=== PATIENT | female | born 1990 | race Caucasian/White ===

== ENCOUNTER 2019-01-30 17:40 | Emergency (ER) | payer OTHER ==
[~2019-01-30] VITALS: Ht 170.2 cm; Wt 75.7 kg
[~2019-01-30 17:40] MED LIST: ATARAX25 MG PO; CIMETIDINE400 MG PO; LOTRISONE CREAM45 GM TP; METOZOLV ODT10 MG PO
[2019-01-30] MEDS ORDERED: GILTUSS TR TAB1 EACH PO (17:46)
[2019-01-30] MEDS ORDERED: ZITHROMAX200 MG PO (17:46)
[2019-01-30] MEDS ORDERED: AMOX1TAB5 PO (19:00)
[2019-01-30] MEDS ORDERED: MEDROLPACK PO (19:00)
[2019-01-30] MEDS ORDERED: CLARITIN10 MG PO (19:00)
[2019-01-30] MEDS ORDERED: TUSNEL LIQUID178 ML PO (19:00)
== END 2019-01-30 19:10 | disposition home or self-care (01) ==
LOC: ER 17:40
DX: J40 Bronchitis, not specified as acute or chronic (principal)

== ENCOUNTER 2019-12-23 23:35 | Emergency (ER) | payer OTHER ==
[~2019-12-23] VITALS: Ht 170.2 cm; Wt 79.4 kg
[~2019-12-23 23:35] MED LIST changes: +AMOX1TAB5 PO; +CLARITIN10 MG PO; +GILTUSS TR TAB1 EACH PO; +MEDROLPACK PO; +TUSNEL LIQUID178 ML PO; +ZITHROMAX200 MG PO
[2019-12-23] MEDS ORDERED: ZOLOFT100 MG PO (23:51)
== END 2019-12-24 02:09 | disposition home or self-care (01) ==
LOC: ER 23:35
DX: T40.7X1A Poisoning by cannabis (derivatives), accidental (unintentional), initial encounter (principal); R42 Dizziness and giddiness; F41.1 Generalized anxiety disorder; F32.89 Other specified depressive episodes; Y92.89 Other specified places as the place of occurrence of the external cause

== ENCOUNTER 2020-01-12 08:31 | Emergency (ER) | payer OTHER ==
[~2020-01-12] VITALS: Ht 170.2 cm; Wt 82.6 kg
[~2020-01-12 08:31] MED LIST changes: +ZOLOFT100 MG PO
[2020-01-12] MEDS ORDERED: ATIVAN1 M1 PO (08:53)
[2020-01-12] MEDS ORDERED: ZOLOFT100 MG PO (08:54)
[2020-01-12] MEDS ORDERED: KETO10TA2 PO (14:52)
== END 2020-01-12 15:00 | disposition home or self-care (01) ==
LOC: ER 08:31
DX: R10.2 Pelvic and perineal pain (principal); Z03.818 Encounter for observation for suspected exposure to other biological agents ruled out

== ENCOUNTER 2020-01-13 10:12 | Outpatient (CLI) | payer OTHER ==
[~2020-01-13 10:12] MED LIST changes: +ATIVAN1 M1 PO; +KETO10TA2 PO
== END 2020-01-13 10:22 | disposition home or self-care (01) ==
LOC: SONOGRAMA 10:12
PROVIDERS: ATTEND General Practice
DX: N83.292 Other ovarian cyst, left side (principal); N83.291 Other ovarian cyst, right side; R10.2 Pelvic and perineal pain

== ENCOUNTER 2020-08-29 07:13 | Emergency (ER) | payer OTHER ==
[~2020-08-29] VITALS: Ht 170.2 cm; Wt 84.4 kg
== END 2020-08-29 12:42 | disposition home or self-care (01) ==
LOC: ER 07:13
DX: U07.1 COVID-19 (principal); B34.9 Viral infection, unspecified

== ENCOUNTER 2022-03-22 07:02 | Emergency (ER) | payer OTHER ==
[~2022-03-22] VITALS: Ht 170.2 cm; Wt 86.2 kg
[2022-03-22] MEDS ORDERED: MEDROLPACK PO (11:30)
== END 2022-03-22 11:55 | disposition home or self-care (01) ==
LOC: ER 07:02
DX: J06.9 Acute upper respiratory infection, unspecified (principal); Z20.822 Contact with and (suspected) exposure to COVID-19

== ENCOUNTER 2024-09-27 23:31 | Emergency (ER) | payer OTHER ==
[~2024-09-27] VITALS: Ht 170.2 cm; Wt 68.0 kg
[2024-09-28] MEDS ORDERED: 0.9 % SODIUM CHLORIDE 1 ML IV STA (08:36)
[2024-09-28 09:16] LABS: BASO % 0.4 % (0.1-1.2); EOS # 0.06 (0.04-0.54); EOS % 1.1 % (0.7-7.0); LYMPH # 1.95 (1.18-3.74); LYMPH % 36.2 % (19.3-53.1); MEAN PLATELET VOLUME 9.20 fl (9.4-12.4); MONO # 0.57 (0.24-0.82); MONO % 10.6 % (4.7-12.5); NEUT # 2.77 (1.56-6.13); NEUT % 51.5 % (34.0-71.1); RED CELL DISTRIBUTION WIDTH 12.8 % (11.6-14.4)
[2024-09-28 09:28] LABS: COVID-19 AG POSITIVE (NEGATIVE)
[2024-09-28 09:28] LABS: ALT/SGPT 25.0 U/L (12-78); AST/SGOT 16.0 U/L (15-37); BILIRUBIN TOTAL 0.29 mg/dL (0.3-1.2); BUN CREA RATIO 11.0 (7.0-25.0); CREATININE SERUM 0.55 mg/dL (0.55-1.02); GFR 128.09; GLOBULINA 3.7 G/DL (2.4-3.5); GLUCOSE FASTING 88.0 mg/dL (65-100); OSMOLALITY SERUM 275.0 MOSM/KG (275-295)
[2024-09-28 11:50] LABS: URINE APPEARANCE Clear; URINE BILIRRUBIN Negative (NEGATIVE); URINE BLOOD Negative; URINE COLOR Yellow; URINE GLUCOSE Negative (NEGATIVE); URINE KETONE Negative (NEGATIVE); URINE LEUKOCYTE Negative; URINE NITRATE Negative; URINE PROTEIN Negative (NEGATIVE); URINE UROBILINOGEN 0.2 E.U./dl
[2024-09-28 11:56] LABS: URINE BACTERIA 2124.7 uL (0.0-1933); URINE EPITHELIAL CELLS 23.9 uL (0.0-38.8); URINE RBC 3.9 uL (0.0-20.8); URINE WBC 10.9 uL (0.0-23.2)
[2024-09-28 12:12] LABS: URINE CAST 0.14 uL (0.0-1.40)
== END 2024-09-28 12:31 | disposition home or self-care (01) ==
LOC: ER 23:31
PROVIDERS: General Practice
DX: U07.1 COVID-19 (principal)